=== PATIENT | female | born 1990 | race African-American/Black ===

== ENCOUNTER 2017-02-21 18:56 | Emergency (ER) | payer OTHER ==
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
== END 2017-02-21 20:10 | disposition home or self-care (01) ==
LOC: ER 18:56
DX: Z48.02 Encounter for removal of sutures (principal)
CPT/HCPCS: Z7502